=== PATIENT | male | born 1945 | race Caucasian/White ===

== ENCOUNTER → 2017-06-21 | Outpatient (CLI) | payer BC ==
[~2017-06-21] MED LIST: AMLO-110 PO; FLUT0.15 NAE; LISI-786 PO; METF1000 PO; OMEP40CA36 PO; PRAV20TA PO
== END | disposition home or self-care (01) ==
LOC: C.LAB 08:16
PROVIDERS: ATTEND Urology
DX: N39.0 Urinary tract infection, site not specified (principal); R35.0 Frequency of micturition; R39.15 Urgency of urination

== ENCOUNTER → 2017-08-16 | Outpatient (CLI) | payer BC ==
--- NOTE | 2017-08-16 09:09 | DIAGNOSTIC IMAGING REPORT ---
L KNEE 4 OR MORE CLINICAL HISTORY: 72 years-old Male presenting with OSTEOARTHRITIS OF LEFT KNEE. TECHNIQUE: Bilateral frontal views of the knees in standing position as well as lateral, tunnel, and sunrise views of the left knee were obtained. COMPARISON: 09/20/2014. FINDINGS: The right knee demonstrates lateral compartment degenerative change including osteophytosis. No significant joint space loss. The left knee demonstrates both medial and lateral compartment osteophytosis as well as patellofemoral compartment osteophytosis. Trace medial joint space loss of the left knee may be present in comparison to the right. Prominent ossicles/heterotopic ossification along the quadriceps tendon insertion site. Additional ossicles/heterotopic ossification noted elsewhere, possibly indicating loose bodies. One of of the calcifications likely represents a fabella. No acute fracture. Lateral subluxation of the patella with severe lateral patellar joint space loss with [id number] morphology. IMPRESSION: 1. Lateral compartment degenerative change of the right knee. 2. Tricompartmental degenerative change of the left knee with trace medial joint space loss. Degenerative changes most severe in the patellofemoral compartment, where there is full-thickness cartilage loss in the lateral facet and mild lateral subluxation of the patella. 3. No acute osseous injury. Electronically signed by: Hieu Monteiro M.D. 08/16/2017 9:07 AM Dictated Date/Time: 08/16/2017 9:04 AM
== END | disposition home or self-care (01) ==
LOC: C.RDSM 08:45
PROVIDERS: ATTEND Physician Assistant
DX: M17.12 Unilateral primary osteoarthritis, left knee (principal); M89.8X6 Other specified disorders of bone, lower leg

== ENCOUNTER → 2017-10-01 | Outpatient (CLI) | payer BC ==
--- NOTE | 2017-10-01 12:59 | DIAGNOSTIC IMAGING REPORT ---
(RENAL)RETROPERITON COMP HISTORY: 72 years-old Male CHRONIC KIDNEY DISEASE COMPARISON: Ultrasound of the aorta 04/06/2015 TECHNIQUE: Multiple real-time sonographic images of the kidneys and urinary bladder were obtained assessing grayscale appearance and color flow FINDINGS: Right kidney measures 11.6 cm in length. There is mild cortical thinning with increased parenchymal echogenicity. 7 mm nonobstructing calculus of the interpolar right kidney. No hydronephrosis. Hypoechoic lesion of the lower pole left kidney measures up to 1.3 cm without internal vascularity which may reflect a complex cyst. The left kidney measures 12.6 cm in length without hydronephrosis or definite renal calculi. Mildly increased echogenicity of the left kidney parenchyma also noted. Incidental note is made of splenomegaly, 14.8 cm. The urinary bladder is unremarkable with ureteral jets not seen. IMPRESSION: 1. Mildly increased echogenicity of the bilateral kidneys suggests chronic medical renal disease. 2. 7 mm nonobstructing calculus of the interpolar right kidney. 3. 1.3 cm hypoechoic avascular lesion of the lower pole right kidney suggests mildly complex cyst. 4. No hydronephrosis. The above report was generated using voice recognition software. It may contain grammatical, syntax or spelling errors. Electronically signed by: Fabiano Mazariegos M.D. 10/01/2017 12:57 PM Dictated Date/Time: 10/01/2017 12:54 PM
== END | disposition home or self-care (01) ==
LOC: C.ULTR 12:10
PROVIDERS: ATTEND Family Medicine
DX: N18.9 Chronic kidney disease, unspecified (principal); N20.0 Calculus of kidney; N28.9 Disorder of kidney and ureter, unspecified

== ENCOUNTER → 2017-12-06 | Outpatient (CLI) | payer BC | END | disposition home or self-care (01) | LOC: C.LAB 11:43 | PROVIDERS: ATTEND Urology | DX: R35.1 Nocturia (principal); N52.9 Male erectile dysfunction, unspecified; N39.0 Urinary tract infection, site not specified; Z12.5 Encounter for screening for malignant neoplasm of prostate ==

== ENCOUNTER 2021-06-30 18:56 | Observation (INO) ==
[2021-06-30] MEDS ORDERED: SODIUM CHLORIDE 0.9% 1000ML 1,000 ML IV STA (19:45)
--- NOTE | 2021-06-30 19:59 | Emergency Department Note ---
Impression & Plan Syncope and collapse, COVID-19 ED Provider Note INFORMANT: Patient ED PROVIDER(S): Dougie Elizalde MD CHIEF COMPLAINT: Syncope PLAN: Disposition: Admitted Condition: Good Outpatient prescription management: none Referral: None MEDICAL DECISION MAKING: Patient was presented to the emergency department because of syncopal episodes. He has had a Covid contact. He does have some symptoms. Chest x-ray does not show any significant findings. Vital signs are stable. He was hydrated. The patient underwent a work-up. His CBC and chemistry panel revealed some mild dehydration. Troponin was negative. The patient underwent CT imaging due to the Covid diagnosis and multiple syncopal episodes. No thromboembolic disease was noted. A viral pneumonitis type pattern was present. Patient was given dose of IV Decadron. Further management in the hospital will be necessary. I gave my usual and customary discussion regarding this issue. Consultation was made with Dr. Chris Pace of the [facility] service. Patient was evaluated in the ER for further management. Triage Nursing notes reviewed and agree them. Vital Signs: reviewed and remarkable for no significant abnormalities Differential diagnosis: COVID-19, vasovagal event, dehydration, infection, hypoglycemia, electrolyte abnormalities, cardiac sources, intracerebral event, pulmonary embolism, seizure, toxicologic, neurologic, as well as other pathologies. Diagnostics interpreted by me: ECG: Twelve-lead ECG reveals normal sinus rhythm at 68 bpm. Inferior Q waves. No ST elevation or depression. No PVCs or PACs. Cardiac Monitoring: Cardiac monitoring ordered by me: The patient was placed on continuous cardiac monitoring and observed. It revealed a normal sinus rhythm at 66 beats per minute without ectopy or evidence of dysrhythmia. Imaging studies: Chest x-ray and CT scan as above. I refer you to the EMR for further details. HPI: The patient is a 76 year old male who presents to the Emergency Room with complaints of syncope. This started this evening and is currently resolved. EMS noted the patient had 3 syncopal episodes. The patient remembers 1. The patient was initially hypotensive. He was given a 250 mL saline bolus. The patient has had a cough and congestion for about 4 days or so. His daughter has had cold symptoms and tested positive for Covid today. The patient is va ccinated. Patient denies any pain. Pt denies headache, diaphoresis, visual changes, neck pain, chest pain, shortness of breath, nausea, vomiting, abdominal pain, back pain, melena, hematochezia, urinary symptoms, numbness, weakness, lymphadenopathy, rash, or other complaints. ROS: See above HPI for pertinent positives & negatives. A total of 10 systems reviewed and were otherwise negative. PAST MEDICAL HISTORY:See Below , CKD, diabetes, hypertension PAST SURGICAL HISTORY:See Below, FAMILY HISTORY:See Below SOCIAL HISTORY:See Below, retired HOME MEDICATIONS:See Below ALLERGIES:See Below VITALS:See Below PHYSICAL EXAMINATION: GENERAL: Awake, tired-appearing, in no distress HENT: Normocephalic, atraumatic. Oropharynx unremarkable. EYES: Normal conjunctiva. Sclera non-icteric. NECK: Inspection normal. Non-tender. Supple. No nuchal rigidity. FROM. No masses. RESPIRATORY: Clear to auscultation. No wheezes. No rales. Normal respiratory e ffort. CARDIAC: Normal rate. Normal rhythm. No murmurs. No rubs. Extremities warm and well perfused. Pulses equal. No JVD. GI: Soft, non-distended. No tenderness to palpation. No rebound or guarding. No masses. RECTAL: Deferred. MUSCULOSKELETAL: Atraumatic. Chest examination reveals no tenderness. The back is symmetrical on inspection without obvious abnormality. There is no CVA tenderness to palpation. No joint edema. LOWER EXTREMITIES: Calves are equal size bilaterally and non-tender. No edema. No discoloration. NEURO: Normal sensorium. No sensory or motor deficits noted. SKIN: No rash or jaundice noted. Dougie Elizalde MD Past Med/Surg History Medical History (Updated 07/01/21 @ 14:40 by Dougie Elizalde MD) Chronic kidney disease, stage III (moderate) Seen by nephro 03/04/20- baseline creat 1.2-1.4. Due to stable kidney function- recommended follow up with PCP. F/u with nephro PRN Degenerative disc disease Chronic low back pain Diabetes mellitus, type 2 IDDM Diastolic heart failure Follows with Dr. Brooks - Joe with Type II diastolic dysfunction Hearing deficit BL CALDERÓN Hypercholesterolemia Hypertension OAB (overactive bladder) Osteoarthritis Peripheral neuropathy LOWER LEGS/FEET Surgical History History of appendectomy History of colonoscopy History of tonsillectomy History of wisdom tooth extraction Family History Father Family history of diabetes mellitus Diabetes Hypertension Heart disease Mother Family history of diabetes mellitus Diabetes Heart disease Hypertension Brother Family history of diabetes mellitus Sister Family history of diabetes mellitus Other No family history of adverse response to anesthesia Social History (Updated 04/13/20 @ 09:25 by Sharon Blackwell RN) Smoking Status: Former smoker Second Hand Exposure: No; Do You Dip or Chew Tobacco: No; Hx Alcohol Use: No Hx Substance Use: No Preferred Language: [place]ese Communication Ability: Effective Curriculum And Assessment Director Required: No Beliefs That Will Affect Care: None marital status: Current Living Situation: Spouse current occupational status: retired current occupation: Retired - [employer] Feels Safe at Home: Yes Safety Concerns: Feels Safe At This Time Assistive Devices: Oxygen - Continuous Allergies Allergies Allergy/AdvReac Type Severity Reaction Status Date / Time No Known Allergies Allergy NONE Verified 06/30/21 20:38 Home Meds Home Medications Medication Instructions Recorded Confirmed aspirin 81 mg tablet,delayed 81 mg PO DAILY 12/01/19 06/30/21 release coenzyme Q10 100 mg capsule 100 mg PO QAM 12/01/19 06/30/21 (CoQ-10) fluticasone propionate 50 1 spray INTRANASAL DAILY PRN 12/01/19 06/30/21 mcg/actuation nasal spray,suspension (Flonase Allergy Relief) insulin glargine 100 unit/mL 16 unit SUBCUT HS 12/01/19 06/30/21 subcutaneous solution (Lantus U-100 Insulin) cholecalciferol (vitamin D3) 50 1,000 units PO BID cap 02/22/20 06/30/21 mcg (2,000 unit) capsule insulin lispro 100 unit/mL 1 sliding scale dose SQ TIDM ml 03/14/20 06/30/21 subcutaneous solution (Humalog U-100 Insulin) acetaminophen 500 mg capsule 1,000 mg PO Q6H PRN 04/27/20 06/30/21 losartan 100 mg tablet 50 mg PO QAM 04/27/20 06/30/21 diclofenac sodium 1 % topical gel 1 ea TOPICAL UD 06/30/21 06/30/21 furosemide 20 mg tablet 20 mg PO DAILY 06/30/21 06/30/21 gabapentin 600 mg tablet 600 mg PO TID 06/30/21 06/30/21 Previous Rx's Medication Instructions Recorded fesoterodine 4 mg tablet,extended 4 mg PO BID #60 tab 03/15/21 release 24 hr Results & Data (ED) Vital Signs Vital Signs - 24 hr 06/30/21 19:06 06/30/21 19:11 06/30/21 19:17 Temperature 37.1 C Temperature Source Oral Pulse Rate 68 69 Pulse Rate [Apical] Pulse Rate from SpO2 Sensor 69 Pulse Rhythm Pulse Rhythm [Apical] Pulse Strength [Apical] Respiratory Rate 18 21 Respiratory Effort / Characteristics Respiratory Depth Normal Respiratory Pattern Blood Pressure 156/89 H Blood Pressure [Right Arm] Blood Pressure Mean 111 Blood Pressure Mean [Right Arm] Blood Pressure Position [Right Arm] Pulse Oximetry 97 97 95 Oxygen Delivery Method Room Air Room Air Sepsis Recent Fever Within 48 Hours No Sepsis New/Unexplained Change in Mental Status N/A Sepsis Action Taken by Nursing No Action Required 06/30/21 19:18 06/30/21 19:30 06/30/21 19:45 Temperature Temperature Source Pulse Rate 69 67 Pulse Rate [Apical] 71 Pulse Rate from SpO2 Sensor 69 67 Pulse Rhythm Pulse Rhythm [Apical] Regular Pulse Strength [Apical] Normal Respiratory Rate 16 22 23 Respiratory Effort / Characteristics Non-Labored Respiratory Depth Normal Respiratory Pattern Regular Blood Pressure 137/78 Blood Pressure [Right Arm] 156/89 H Blood Pressure Mean 97 Blood Pressure Mean [Right Arm] 111 Blood Pressure Position [Right Arm] Lying Pulse Oximetry 94 92 95 Oxygen Delivery Method Room Air Sepsis Recent Fever Within 48 Hours Sepsis New/Unexplained Change in Mental Status Sepsis Action Taken by Nursing 06/30/21 19:48 06/30/21 20:00 06/30/21 20:15 Temperature Temperature Source Pulse Rate 68 67 74 Pulse Rate [Apical] 66 Pulse Rate from SpO2 Sensor 67 73 Pulse Rhythm Regular Pulse Rhythm [Apical] Regular Pulse Strength [Apical] Normal Respiratory Rate 16 22 20 Respiratory Effort / Characteristics Non-Labored Respiratory Depth Normal Respiratory Pattern Regular Blood Pressure 147/81 H Blood Pressure [Right Arm] 137/78 Blood Pressure Mean 103 Blood Pressure Mean [Right Arm] 97 Blood Pressure Position [Right Arm] Lying Pulse Oximetry 94 99 94 Oxygen Delivery Method Room Air Sepsis Recent Fever Within 48 Hours Sepsis New/Unexplained Change in Mental Status Sepsis Action Taken by Nursing 06/30/21 20:30 06/30/21 20:45 06/30/21 21:00 Temperature Temperature Source Pulse Rate 68 70 71 Pulse Rate [Apical] Pulse Rate from SpO2 Sensor 69 70 102 H Pulse Rhythm Pulse Rhythm [Apical] Pulse Strength [Apical] Respiratory Rate 21 20 20 Respiratory Effort / Characteristics Respiratory Depth Respiratory Pattern Blood Pressure 155/87 H 166/89 H Blood Pressure [Right Arm] Blood Pressure Mean 109 114 Blood Pressure Mean [Right Arm] Blood Pressure Position [Right Arm] Pulse Oximetry 93 91 81 L Oxygen Delivery Method Sepsis Recent Fever Within 48 Hours Sepsis New/Unexplained Change in Mental Status Sepsis Action Taken by Nursing 06/30/21 21:18 Temperature 36.8 C Temperature Source Oral Pulse Rate Pulse Rate [Apical] 70 Pulse Rate from SpO2 Sensor Pulse Rhythm Pulse Rhythm [Apical] Regular Pulse Strength [Apical] Normal Respiratory Rate 18 Respiratory Effort / Characteristics Non-Labored Respiratory Depth Normal Respiratory Pattern Regular Blood Pressure Blood Pressure [Right Arm] 157/91 H Blood Pressure Mean Blood Pressure Mean [Right Arm] 113 Blood Pressure Position [Right Arm] Lying Pulse Oximetry 96 Oxygen Delivery Method Room Air Sepsis Recent Fever Within 48 Hours Sepsis New/Unexplained Change in Mental Status Sepsis Action Taken by Nursing Laboratory Data Result diagrams: 07/01/21 06:56 07/01/21 06:56 Lab Results 06/30/21 06/30/21 06/30/21 Range/Units 19:10 19:10 19:10 WBC 5.57 (4.8-10.8) K/uL RBC 4.54 L (4.7-6.1) M/uL Hgb 14.4 (14.0-18.0) g/dL Hct 43.2 (42-52) % MCV 95.2 (80-100) fL MCH 31.7 (25-34) pg MCHC 33.3 (32-36) g/dL RDW Std Deviation 45.7 (36.4-46.3) fL RDW Coeff of Roly 13.2 (11.5-14.5) % Plt Count 174 (130-400) K/uL MPV 11.8 H (7.4-10.4) fL Immature Gran % (Auto) 0.2 % Neut % (Auto) 63.8 % Lymph % (Auto) 19.9 % Catron % (Auto) 14.5 % Eos % (Auto) 1.4 % Baso % (Auto) 0.2 % Neut # (Auto) 3.55 (1.4-6.5) K/uL Lymph # (Auto) 1.11 L (1.2-3.4) K/uL Catron # (Auto) 0.81 H (0.11-0.59) K/uL Eos # (Auto) 0.08 (0-0.5) K/uL Baso # (Auto) 0.01 (0-0.2) K/uL Immature Gran # (Auto) 0.01 (0.00-0.02) K/uL PT 10.4 (9.0-12.0) Seconds INR 1.0 (0.9-1.1) APTT 28.8 (21.0-31.0) Seconds PTT Ratio 1.1 Sodium 137 (136-145) mmol/L Potassium 4.2 (3.5-5.1) mmol/L Chloride 104 (98-107) mmol/L Carbon Dioxide 28 (21-32) mmol/L Anion Gap 5.0 (3-11) BUN 26 H (7-18) mg/dl Creatinine 1.66 H (0.6-1.4) mg/dl Est Cr Clr Drug Dosing 45.1 ml/min Est GFR ( Amer) 46.0 ml/min Est GFR (Non-Af Amer) 39.7 ml/min BUN/Creatinine Ratio 15.8 (10-20) Glucose 201 H (70-99) mg/dl Calcium 8.7 (8.5-10.1) mg/dl Total Bilirubin 0.5 (0.2-1) mg/dl AST 13 L (15-37) U/L ALT 19 (12-78) U/L Alkaline Phosphatase 79 (45-117) U/L Troponin I < 0.015 (0-0.045) ng/ml Total Protein 7.1 (6.4-8.2) gm/dl Albumin 3.0 L (3.4-5.0) gm/dl Globulin 4.1 H (2.5-4.0) gm/dl Albumin/Globulin Ratio 0.7 L (0.9-2) Lipase 80 (73-393) U/L COVID-19 Eval Order SARS-CoV-2 (PCR) (Negative) 06/30/21 06/30/21 Range/Units 19:48 19:48 WBC (4.8-10.8) K/uL RBC (4.7-6.1) M/uL Hgb (14.0-18.0) g/dL Hct (42-52) % MCV (80-100) fL MCH (25-34) pg MCHC (32-36) g/dL RDW Std Deviation (36.4-46.3) fL RDW Coeff of Roly (11.5-14.5) % Plt Count (130-400) K/uL MPV (7.4-10.4) fL Immature Gran % (Auto) % Neut % (Auto) % Lymph % (Auto) % Catron % (Auto) % Eos % (Auto) % Baso % (Auto) % Neut # (Auto) (1.4-6.5) K/uL Lymph # (Auto) (1.2-3.4) K/uL Catron # (Auto) (0.11-0.59) K/uL Eos # (Auto) (0-0.5) K/uL Baso # (Auto) (0-0.2) K/uL Immature Gran # (Auto) (0.00-0.02) K/uL PT (9.0-12.0) Seconds INR (0.9-1.1) APTT (21.0-31.0) Seconds PTT Ratio Sodium (136-145) mmol/L Potassium (3.5-5.1) mmol/L Chloride (98-107) mmol/L Carbon Dioxide (21-32) mmol/L Anion Gap (3-11) BUN (7-18) mg/dl Creatinine (0.6-1.4) mg/dl Est Cr Clr Drug Dosing ml/min Est GFR ( Amer) ml/min Est GFR (Non-Af Amer) ml/min BUN/Creatinine Ratio (10-20) Glucose (70-99) mg/dl Calcium (8.5-10.1) mg/dl Total Bilirubin (0.2-1) mg/dl AST (15-37) U/L ALT (12-78) U/L Alkaline Phosphatase (45-117) U/L Troponin I (0-0.045) ng/ml Total Protein (6.4-8.2) gm/dl Albumin (3.4-5.0) gm/dl Globulin (2.5-4.0) gm/dl Albumin/Globulin Ratio (0.9-2) Lipase (73-393) U/L COVID-19 Eval Order Covid19 at [facility] SARS-CoV-2 (PCR) POSITIVE A* (Negative) Administered Medications Aspirin (Aspirin 81 Mg Ectab) 81 mg PO DAILY BRENDAN Stop: 07/31/21 08:59 Last Admin: 07/01/21 09:25 Dose: 81 mg Documented by: [id number] Enoxaparin Sodium (Enoxaparin Inj 40 Mg/0.4 Ml Syr) 40 mg SQ Q12H BRENDAN Stop: 07/31/21 05:59 Last Admin: 07/01/21 04:05 Dose: 40 mg Documented by: [id number] Furosemide (Furosemide 20 Mg Tab) 20 mg PO DAILY BRENDAN Stop: 07/31/21 08:59 Last Admin: 07/01/21 09:25 Dose: 20 mg Documented by: [id number] Gabapentin (Gabapentin 600 Mg Tab) 600 mg PO TID BRENDAN Stop: 07/31/21 08:59 Last Admin: 07/01/21 13:06 Dose: 600 mg Documented by: [id number] Admin: 07/01/21 09:25 Dose: 600 mg Documented by: [id number] Guaifenesin (Guaifenesin 600 Mg Tabcr) 1,200 mg PO Q12 BRENDAN Stop: 07/31/21 08:59 Last Admin: 07/01/21 09:26 Dose: 1,200 mg Documented by: [id number] Dexamethasone 6 mg/ Syringe 1.5 mls @ 1 mls/min IV Q24H BRENDAN Stop: 07/31/21 08:59 Last Admin: 07/01/21 09:48 Dose: 1 mls/min Documented by: [id number] Azithromycin 500 mg/ Dextrose 255 mls @ 125 mls/hr IV Q24H BRENDAN Stop: 07/08/21 03:59 Last Infusion: 07/01/21 06:13 Dose: 0 mls/hr Documented by: [id number] Admin: 07/01/21 04:05 Dose: 125 mls/hr Documented by: [id number] Insulin Aspart (Insulin Aspart 100 Units/Ml 3 Ml Pen) 0 units SC ACHS BRENDAN Stop: 07/31/21 07:29 Last Admin: 07/01/21 13:05 Dose: 8 units Documented by: [id number] Cosigned by: [id number] Admin: 07/01/21 09:22 Dose: 9 units Documented by: [id number] Cosigned by: [id number] Admin: 07/01/21 04:05 Dose: 4 units Documented by: [id number] Cosigned by: [id number] Sodium Chloride (Sodium Chloride 0.9% 10ml Flush) 30 ml IV Q24H BRENDAN Stop: 07/05/21 00:56 Last Admin: 07/01/21 02:48 Dose: 30 ml Documented by: [id number] Tolterodine Tartrate (Tolterodine Tartrate La 4 Mg Capcr) 4 mg PO DAILY [facility] Stop: 07/31/21 08:59 Last Admin: 07/01/21 09:26 Dose: 4 mg Documented by: [id number] Vitamin D (Cholecalciferol 1,000 Units 25 Mcg Tab) 5,000 [facility] [place]: 07/31/21 08:59 Last Admin: 07/01/21 09:25 Dose: 5,000 units Documented by: [id number] Zinc Sulfate (Zinc Sulfate 220 Mg Capsule) 220 mg PO QAM [facility] Stop: 07/31/21 08:59 Last Admin: 07/01/21 09:26 Dose: 220 mg Documented by: [id number] Discontinued Medications Albuterol (Albut/Ipratrop 3mg/0.5mg Neb 3 Ml Vial) 3 ml NEB QIDR [facility] Stop: 07/31/21 06:59 Last Admin: 07/01/21 11:25 Dose: 3 ml Documented by: [id number] Admin: 07/01/21 05:40 Dose: 3 ml Documented by: [id number] Dexamethasone Sodium Phosphate (DexamethasonePf 10 Mg/Ml Vial) 6 mg IV NOW ONE Stop: 06/30/21 21:45 Last Admin: 06/30/21 21:58 Dose: 6 mg Documented by: [id number] Sodium Chloride (Nss 1000ml) 1,000 mls @ 125 mls/hr IV .Q8H STA Stop: 07/01/21 03:44 Last Infusion: 07/01/21 02:16 Dose: 0 mls/hr Documented by: [id number] Admin: 06/30/21 19:53 Dose: 125 mls/hr Documented by: [id number] Sodium Chloride (Nss 1000ml) 500 mls @ 999 mls/hr IV .Q31M ONE Stop: 06/30/21 23:29 Last Infusion: 07/01/21 02:52 Dose: 0 mls/hr Documented by: [id number] Admin: 07/01/21 02:15 Dose: 999 mls/hr Documented by: [id number] Remdesivir 200 mg/ Sodium (Chloride) 250 mls @ 125 mls/hr IV ONE STA; Protocol Stop: 07/01/21 01:17 Last Infusion: 07/01/21 02:52 Dose: 0 mls/hr Documented by: [id number] Admin: 07/01/21 00:23 Dose: 125 mls/hr Documented by: [id number] Sodium Chloride (Nss 1000ml) 1,000 mls @ 80 mls/hr IV .[id number] BRENDAN Stop: 07/01/21 13:24 Last Infusion: 07/01/21 09:51 Dose: 0 mls/hr Documented by: [id number] Infusion: 07/01/21 06:04 Dose: 80 mls/hr Documented by: [id number] Infusion: 07/01/21 04:13 Dose: 0 mls/hr Documented by: [id number] Admin: 07/01/21 02:49 Dose: 80 mls/hr Documented by: [id number] Ioversol (Optiray 320 125ml) 102 ml IV ONCE ONE Stop: 06/30/21 22:22 Last Admin: 06/30/21 22:25 Dose: 102 ml Documented by: [id number] Imaging Data Radiologist's Impression: Chest CTA 06/30/21 21:44 CHEST CTA for PULMONARY ARTERIES CT DOSE: 562.61 mGycm HISTORY: Syncope, +Covid TECHNIQUE: Multiaxial CT images of the chest were performed following the intravenous administration of contrast to evaluate the pulmonary arteries. Maximal intensity projection images were also obtained. A dose lowering technique was utilized adhering to the principles of ALARA. COMPARISON STUDY: None. FINDINGS: Limited views of the upper abdomen demonstrate a normal liver and spleen. Prior cholecystectomy. There is a small hiatus hernia. No pleural or p ericardial effusions. The heart is mildly enlarged. Normal esophagus. No mediastinal lymphadenopathy. No fractures within the visualized osseous structures. No pneumothorax. The central airways are patent. There is respiratory motion artifact resulting in suboptimal evaluation. Mild interlobular septal thickening at the lung bases. There are faint patchy groundglass airspace opacities within the right middle lobe. Bibasilar linear densities consistent with subsegmental atelectasis. There are few borderline enlarged right hilar and right bronchial lymph nodes. These may be reactive. Normal caliber thoracic aorta with no evidence for dissection. No filling defects within the pulmonary arteries to suggest a pulmonary embolus. IMPRESSION: 1. No evidence for pulmonary embolus. 2. Patchy groundglass airspace opacities within the right middle lobe consistent with an atypical infectious process such as a viral pneumonia. 3. A few prominent right hilar and bronchial lymph nodes which may be reactive. ACT 112: Negative or not required by law. Electronically signed by: Raul Ann M.D. 07/01/2021 8:52 AM Discharge Plan Visit Data Chief Complaint: Cardiac Assessment Stated Complaint: Syncope covid exposure ED Provider: Dougie Elizalde Discharge Problem: Syncope and collapse, COVID-19 Patient Disposition: Admitted As Inpatient Discharge Instructions Interventions: ED Discharge Assessment Last Done: 07/01/21 00:43
[2021-06-30 20:20] LABS: Basophils # (auto) 0.01 K/uL (0-0.2); Basophils % (auto) 0.2 %; Eosinophils # (auto) 0.08 K/uL (0-0.5); Eosinophils % (auto) 1.4 %; Hematocrit (blood only) 43.2 % (42-52); Hemoglobin 14.4 g/dL (14.0-18.0); Immature Granulocytes # (auto) 0.01 K/uL (0.00-0.02); Immature Granulocytes % (auto) 0.2 %; Lymphocytes # (auto) 1.11 K/uL (1.2-3.4); Lymphocytes % (auto) 19.9 %; Mean Corpuscular Hemoglobin 31.7 pg (25-34); Mean Corpuscular Hgb Conc 33.3 g/dL (32-36); Mean Corpuscular Volume 95.2 fL (80-100); Mean Platelet Volume 11.8 fL (7.4-10.4); Monocytes # (auto) 0.81 K/uL (0.11-0.59); Monocytes % (auto) 14.5 %; Neutrophils # (auto) 3.55 K/uL (1.4-6.5); Neutrophils % (auto) 63.8 %; Platelet Count 174 K/uL (130-400); RDW Coefficient of Variation 13.2 % (11.5-14.5); RDW Standard Deviation 45.7 fL (36.4-46.3); Red Blood Count 4.54 M/uL (4.7-6.1); White Blood Count 5.57 K/uL (4.8-10.8)
--- NOTE | 2021-06-30 20:23 | XRay Report ---
XR chest 1V portable CLINICAL HISTORY: Syncope. COMPARISON STUDY: Chest radiograph December 22, 2020. FINDINGS: No pneumothorax or pleural effusion is present. Cardiomegaly is noted. There may be pulmona ry vascular congestion. No lobar consolidation. IMPRESSION: Cardiomegaly with pulmonary vascular congestion. ACT 112: Negative or not required by law. Electronically signed by: Ventura Slade M.D. 06/30/2021 8:21 PM
[2021-06-30 20:33] LABS: Partial Thromboplastin Ratio 1.1; Partial Thromboplastin Time 28.8 Seconds (21.0-31.0); Prothrombin Time 10.4 Seconds (9.0-12.0)
[2021-06-30 20:57] LABS: Alanine Aminotransferase 19 U/L (12-78); Aspartate Aminotransferase 13 U/L (15-37); BUN Creatinine Ratio 15.8 (10-20); Blood Urea Nitrogen 26 mg/dl (7-18); Calcium 8.7 mg/dl (8.5-10.1); Carbon Dioxide 28 mmol/L (21-32); Chloride 104 mmol/L (98-107); Creatinine Clr Calc Pharmacy 45.1 ml/min; Est GFR (Non-African American) 39.7 ml/min; Glucose 201 mg/dl (70-99); Lipase 80 U/L (73-393); Potassium 4.2 mmol/L (3.5-5.1); Sodium 137 mmol/L (136-145)
[2021-06-30 21:01] LABS: Albumin Globulin Ratio 0.7 (0.9-2); Alkaline Phosphatase 79 U/L (45-117); Bilirubin,Total 0.5 mg/dl (0.2-1); Globulin 4.1 gm/dl (2.5-4.0); Total Protein 7.1 gm/dl (6.4-8.2); Troponin I < 0.015 ng/ml (0-0.045)
[2021-06-30] MEDS ORDERED: dexAMETHasone**PF** 10 MG/ML VIAL IV ONE (21:44)
[2021-06-30] MEDS ORDERED: OPTIRAY 320 125ml IV ONE (22:21)
[2021-06-30] MEDS ORDERED: SODIUM CHLORIDE 0.9% 1000ML 500 ML IV ONE (22:59)
[2021-06-30] MEDS ORDERED: REMDESIVIR 200 MG in SODIUM CHLORIDE 0.9% 210 ML IV STA (23:18)
--- NOTE | 2021-06-30 23:19 | History & Physical Report ---
Date of Service June 30, 2021 Assessment & Plan (1) Pneumonia due to COVID-19 virus: Plan: Pneumonia due to COVID-19 virus with hypoxia- Dexamethasone 6 mg IV every morning Remdesivir IV per protocol Azithromycin 500 mg IV daily Duonebs every 4 hours while awake and every 2 hours when necessary. Nasal cannula oxygen, titrate to keep pulse ox around 94% Guaifenesin extended release 1200 mg p.o. twice daily Vitamin D 5000 international units p.o. daily Zinc sulfate turn 20 mg p.o. daily (2) Hypoxia: Plan: See above (3) Diabetes mellitus: Plan: Glucose 201 upon admission Continue Lantus 16 units subcu at bedtime Place on Accu-Cheks before meals and at bedtime with NovoLog coverage per scale Check hemoglobin A1c (4) Acute kidney injury superimposed on chronic kidney disease: Plan: RAMIN on CKD stage III- Creatinine 1.66 upon admission, with base 1.38 Received NSS 1500 mL in the ED NSS at 100 mils per hour x1 L Repeat laboratories in a.m. (5) Hypertension: Plan: Hold losartan, and furosemide Hydralazine 10 mg IV every 4 hours as needed systolic blood pressure greater than 160 (6) Chronic kidney disease, stage III (moderate): Plan: See above (7) Peripheral neuropathy: Plan: Continue gabapentin History of Present Illness Chief Complaint: The patient presents to the emergency department with complaint of 4 to 5 days of chest congestion, shortness of breath, and dyspnea on exertion, after exposure to his daughter who tested positive for COVID-19 Primary Care Provider: Laz Nunez The patient is a 76-year-old male with a past medical history including hypercholesterolemia, BPH with LUTS, internal hemorrhoids, diabetes mellitus, diverticulosis, GERD, vitamin D deficiency, hypertension and CKD stage III. Patient reports symptoms as noted above, in addition, he reports an episode where he became very fatigued, lost his balance, but did not lose consciousness. He denies any injuries associated with this fall Allergies Allergy/AdvReac Type Severity Reaction Status Date / Time No Known Allergies Allergy NONE Verified 06/30/21 20:38 Home Medications Medication Instructions Recorded Confirmed Type aspirin 81 mg tablet,delayed 81 mg PO DAILY 12/01/19 06/30/21 History release coenzyme Q10 100 mg capsule 100 mg PO QAM 12/01/19 06/30/21 History (CoQ-10) fluticasone propionate 50 1 spray INTRANASAL DAILY PRN 12/01/19 06/30/21 History mcg/actuation nasal spray,suspension (Flonase Allergy Relief) insulin glargine 100 unit/mL 16 unit SUBCUT HS 12/01/19 06/30/21 History subcutaneous solution (Lantus U-100 Insulin) cholecalciferol (vitamin D3) 50 1,000 units PO BID cap 02/22/20 06/30/21 History mcg (2,000 unit) capsule insulin lispro 100 unit/mL 1 sliding scale dose SQ TIDM ml 03/14/20 06/30/21 Hi story subcutaneous solution (Humalog U-100 Insulin) acetaminophen 500 mg capsule 1,000 mg PO Q6H PRN 04/27/20 06/30/21 History losartan 100 mg tablet 50 mg PO QAM 04/27/20 06/30/21 History fesoterodine 4 mg tablet,extended 4 mg PO BID #60 tab 03/15/21 06/30/21 Rx release 24 hr diclofenac sodium 1 % topical gel 1 ea TOPICAL UD 06/30/21 06/30/21 History furosemide 20 mg tablet 20 mg PO DAILY 06/30/21 06/30/21 History gabapentin 600 mg tablet 600 mg PO TID 06/30/21 06/30/21 History Past Med/Surg History Medical History (Updated 07/01/21 @ 03:03 by Chris Pace MD) Chronic kidney disease, stage III (moderate) Seen by nephro 03/04/20- baseline creat 1.2-1.4. Due to stable kidney function- recommended follow up with PCP. F/u with nephro PRN Degenerative disc disease Chronic low back pain Diabetes mellitus, type 2 IDDM Diastolic heart failure Follows with Dr. Brooks - Joe with Type II diastolic dysfunction Hearing deficit BL CALDERÓN Hypercholesterolemia Hypertension OAB (overactive bladder) Osteoarthritis Peripheral neuropathy LOWER LEGS/FEET Surgical History History of appendectomy History of colonoscopy History of tonsillectomy History of wisdom tooth extraction Family History Father Family history of diabetes mellitus Diabetes Hypertension Heart disease Mother Family history of diabetes mellitus Diabetes Heart disease Hypertension Brother Family history of diabetes mellitus Sister Family history of diabetes mellitus Other No family history of adverse response to anesthesia Social History (Updated 04/13/20 @ 09:25 by Sharon Blackwell RN) Smoking Status: Former smoker Second Hand Exposure: Yes (FAMILY SMOKED); Hx Alcohol Use: No Hx Substance Use: No Preferred Language: Nepali Communication Ability: Effective Staffing Analyst Required: No Beliefs That Will Affect Care: None marital status: Current Living Situation: Spouse current occupational status: retired current occupation: Retired - [employer] Feels Safe at Home: Yes Assistive Devices: Glasses and Hearing Aid - Bilateral Review of Systems Review of Systems: The patient denies chest pain, palpitations, cough, lower extremity swelling, sore throat, fevers, chills, sweats, nausea, vomiting, diarrhea , constipation, abdominal pain, pelvic pain, blood in urine or stool, dysuria, urinary frequency or urgency, memory loss, loss of consciousness, rash, abnormal bruising or bleeding, focal weakness, numbness or tingling in arms or legs, generalized arthralgias or myalgias, back or neck pain, or night sweats. The review of systems is otherwise negative other than for that already noted above, and at least 10 systems have been reviewed. Physical Exam Physical Exam: The patient is awake, alert and oriented 3, well developed and well nourished, normocephalic and atraumatic, lying in bed and in no acute distress. HEENT--PERRL, EOMI, mucous membranes and oropharynx normal. Neck--supple. No JVD. No bruits. Thyroid normal, trachea midline, no adenopathy. Heart--normal S1 and S2. No murmurs, rubs or gallops. Lungs--few coarse breath sounds bilaterally. No respiratory distress, no accessory muscle use. Abdomen--normal bowel sounds and soft. Nontender. Nondistended, no hernias or masses, no organomegaly. Extremities--no cyanosis or clubbing. No edema. Dermatologic--normal skin turgor, normal color, no abnormal lymph nodes, no rash. Neurologic--cranial nerves II through XII grossly intact. Rheumatologic--normal range of motion. Psychiatric--normal affect. Results & Data Results & Data ([facility]) Vital Signs (Past 12 Hours) Vital Signs Temp Pulse Pulse Resp BP BP Pulse Ox 06/30/21 21:18 98.2 F 70 18 157/91 H 96 06/30/21 21:00 71 20 166/89 H 81 L 06/30/21 20:45 70 20 91 06/30/21 20:30 68 21 155/87 H 93 06/30/21 20:15 74 20 94 06/30/21 20:00 67 22 147/81 H 99 06/30/21 19:48 68 66 16 137/78 94 06/30/21 19:45 67 23 95 06/30/21 19:30 69 22 137/78 92 06/30/21 19:18 71 16 156/89 H 94 06/30/21 19:17 69 21 95 06/30/21 19:11 97 06/30/21 19:06 98.8 F 68 18 156/89 H 97 Laboratory Results Laboratory Results WBC 5.57 K/uL (4.8-10.8) 06/30/21 19:10 RBC 4.54 M/uL (4.7-6.1) L 06/30/21 19:10 Hgb 14.4 g/dL (14.0-18.0) 06/30/21 19:10 Hct 43.2 % (42-52) 06/30/21 19:10 MCV 95.2 fL (80-100) 06/30/21 19:10 MCH 31.7 pg (25-34) 06/30/21 19:10 MCHC 33.3 g/dL (32-36) 06/30/21 19:10 RDW Std Deviation 45.7 fL (36.4-46.3) 06/30/21 19:10 RDW Coeff of Roly 13.2 % (11.5-14.5) 06/30/21 19:10 Plt Count 174 K/uL (130-400) 06/30/21 19:10 MPV 11.8 fL (7.4-10.4) H 06/30/21 19:10 Immature Gran % (Auto) 0.2 % 06/30/21 19:10 Neut % (Auto) 63.8 % 06/30/21 19:10 Lymph % (Auto) 19.9 % 06/30/21 19:10 [place] % (Auto) 14.5 % 06/30/21 19:10 Eos % (Auto) 1.4 % 06/30/21 19:10 Baso % (Auto) 0.2 % 06/30/21 19:10 Neut # (Auto) 3.55 K/uL (1.4-6.5) 06/30/21 19:10 Lymph # (Auto) 1.11 K/uL (1.2-3.4) L 06/30/21 19:10 [place] # (Auto) 0.81 K/uL (0.11-0.59) H 06/30/21 19:10 Eos # (Auto) 0.08 K/uL (0-0.5) 06/30/21 19:10 Baso # (Auto) 0.01 K/uL (0-0.2) 06/30/21 19:10 Immature Gran # (Auto) 0.01 K/uL (0.00-0.02) 06/30/21 19:10 PT 10.4 Seconds (9.0-12.0) 06/30/21 19:10 INR 1.0 (0.9-1.1) 06/30/21 19:10 APTT 28.8 Seconds (21.0-31.0) 06/30/21 19:10 PTT Ratio 1.1 06/30/21 19:10 Sodium 137 mmol/L (136-145) 06/30/21 19:10 Potassium 4.2 mmol/L (3.5-5.1) 06/30/21 19:10 Chloride 104 mmol/L (98-107) 06/30/21 19:10 Carbon Dioxide 28 mmol/L (21-32) 06/30/21 19:10 Anion Gap 5.0 (3-11) 06/30/21 19:10 BUN 26 mg/dl (7-18) H 06/30/21 19:10 Creatinine 1.66 mg/dl (0.6-1.4) H 06/30/21 19:10 Est Cr Clr Drug Dosing 45.1 ml/min 06/30/21 19:10 Est GFR ( Amer) 46.0 ml/min 06/30/21 19:10 Est GFR (Non-Af Amer) 39.7 ml/min 06/30/21 19:10 BUN/Creatinine Ratio 15.8 (10-20) 06/30/21 19:10 Glucose 201 mg/dl (70-99) H 06/30/21 19:10 POC Glucose 258 mg/dl (70-99) H 07/01/21 02:19 Calcium 8.7 mg/dl (8.5-10.1) 06/30/21 19:10 Total Bilirubin 0.5 mg/dl (0.2-1) 06/30/21 19:10 AST 13 U/L (15-37) L 06/30/21 19:10 ALT 19 U/L (12-78) 06/30/21 19:10 Alkaline Phosphatase 79 U/L (45-117) 06/30/21 19:10 Troponin I < 0.015 ng/ml (0-0.045) 06/30/21 19:10 Total Protein 7.1 gm/dl (6.4-8.2) 06/30/21 19:10 Albumin 3.0 gm/dl (3.4-5.0) L 06/30/21 19:10 Globulin 4.1 gm/dl (2.5-4.0) H 06/30/21 19:10 Albumin/Globulin Ratio 0.7 (0.9-2) L 06/30/21 19:10 Lipase 80 U/L (73-393) 06/30/21 19:10 COVID-19 Eval Order Covid19 at [facility] 06/30/21 19:48 SARS-CoV-2 (PCR) POSITIVE (Negative) A* 06/30/21 19:48 Impressions Chest X-Ray 06/30/21 19:43 XR chest 1V portable CLINICAL HISTORY: Syncope. COMPARISON STUDY: Chest radiograph December 22, 2020. FINDINGS: No pneumothorax or pleural effusion is present. Cardiomegaly is noted. There may be pulmonary vascular congestion. No lobar consolidation. IMPRESSION: Cardiomegaly with pulmonary vascular congestion. ACT 112: Negative or not required by law. Electronically signed by: Ventura Slade M.D. 06/30/2021 8:21 PM Code Status & VTE Plan Code Status Full code VTE Prophylaxis Plan VTE Prophylaxis will be ordered: Yes PG Care Time/CCT Total # of Minutes Spent Total Time Spent with Patient: Total time spent is greater than 50% in coordination of care (as documented) at patient's floor/unit and/or counseling patient: Coding Level of Care Code 84727 Initial Inpt Care Lvl 3 Diagnoses Diabetes mellitus E11.9 Hypertension I10 Chronic kidney disease, stage III (moderate) N18.3 Peripheral neuropathy G62.9 Pneumonia due to COVID-19 virus U07.1; J12.82 Hypoxia R09.02 Acute kidney injury superimposed on chronic kidney disease N17.9; N18.9
[2021-07-01] MEDS ORDERED: ONDANSETRON INJ 2 MG/ML 2 ML VIAL IV PRN (00:55)
[2021-07-01] MEDS ORDERED: CARBOHYDRATES FOR HYPOGLYCEMIA PO PRN (00:55)
[2021-07-01] MEDS ORDERED: NON-FORMULARY MEDICATION (Cholecalciferol (Vitamin D3) 50 mcg (2,000 unit) capsule) PO SCH (00:55)
[2021-07-01] MEDS ORDERED: GLUCAGON FOR INJ 1 MG VIAL SQ PRN (00:55)
[2021-07-01] MEDS ORDERED: DEXTROSE 50% 50 ML SYRINGE IV PRN (00:55)
[2021-07-01] MEDS ORDERED: GLUCOSE 10 TABS/TUBE PO PRN (00:55)
[2021-07-01] MEDS ORDERED: GLUCOSE 40% GEL 15 GM TUBE PO PRN (00:55)
[2021-07-01] MEDS ORDERED: SODIUM CHLORIDE 0.9% 1000ML 1,000 ML IV SCH (00:55)
[2021-07-01] MEDS ORDERED: ACETAMINOPHEN 325 MG TAB PO PRN (02:41)
[2021-07-01] MEDS: SODIUM CHLORIDE 0.9% 10ML FLUSH IV SCH ×3 (02:48→22:55)
[2021-07-01] MEDS ORDERED: hydrALAZINE HCL 20 MG/ML VIAL IV PRN (03:04)
[2021-07-01] MEDS: INSULIN ASPART 100 UNITS/ML 3 ML PEN SC SCH ×5 (04:05→20:33)
[2021-07-01] MEDS: ENOXAPARIN INJ 40 MG/0.4 ML SYR SQ SCH ×2 (04:05→18:07)
[2021-07-01] MEDS: AZITHROMYCIN 500 MG in DEXTROSE 5% 250 ML IV SCH (04:05)
[2021-07-01] MEDS: ALBUT/IPRATROP 3MG/0.5MG NEB 3 ML VIAL NEB SCH ×2 (05:40→11:25)
[2021-07-01 07:43] LABS: Estimated Average Glucose 189 mg/dl; Hemoglobin A1C 8.2 % (4.5-5.6)
[2021-07-01 07:50] LABS: Hematocrit (blood only) 42.7 % (42-52); Hemoglobin 14.5 g/dL (14.0-18.0); Immature Granulocytes # (auto) 0.01 K/uL (0.00-0.02); Immature Granulocytes % (auto) 0.2 %; Lymphocytes # (auto) 0.45 K/uL (1.2-3.4); Lymphocytes % (auto) 8.6 %; Mean Corpuscular Hemoglobin 31.8 pg (25-34); Mean Corpuscular Volume 93.6 fL (80-100); Mean Platelet Volume 11.2 fL (7.4-10.4); Monocytes # (auto) 0.25 K/uL (0.11-0.59); Monocytes % (auto) 4.8 %; Neutrophils % (auto) 86.4 %; Platelet Count 146 K/uL (130-400); RDW Standard Deviation 44.6 fL (36.4-46.3); Red Blood Count 4.56 M/uL (4.7-6.1); White Blood Count 5.21 K/uL (4.8-10.8)
[2021-07-01 08:13] LABS: Albumin Level 2.8 gm/dl (3.4-5.0); BUN Creatinine Ratio 17.4 (10-20); Creatinine Clr Calc Pharmacy 57.1 ml/min; Est GFR (African American) 60.2 ml/min; Est GFR (Non-African American) 51.9 ml/min; Potassium 4.5 mmol/L (3.5-5.1)
[2021-07-01 08:16] LABS: Albumin Globulin Ratio 0.7 (0.9-2); Bilirubin,Total 0.4 mg/dl (0.2-1); Globulin 3.8 gm/dl (2.5-4.0); Total Protein 6.6 gm/dl (6.4-8.2)
--- NOTE | 2021-07-01 08:53 | CT Scan Report ---
CHEST CTA for PULMONARY ARTERIES CT DOSE: 562.61 mGycm HISTORY: Syncope, +Covid TECHNIQUE: Multiaxial CT images of the chest were performed following the intravenous administration of contrast to evaluate the pulmonary arteries. Maximal intensity projection images were also obtaine d. A dose lowering technique was utilized adhering to the principles of ALARA. COMPARISON STUDY: None. FINDINGS: Limited views of the upper abdomen demonstrate a normal liver and spleen. Prior cholecystec stephanie. There is a small hiatus hernia. No pleural or pericardial effusions. The heart is mildly enlarg ed. Normal esophagus. No mediastinal lymphadenopathy. No fractures within the visualized osseous stru ctures. No pneumothorax. The central airways are patent. There is respiratory motion artifact resulti ng in suboptimal evaluation. Mild interlobular septal thickening at the lung bases. There are faint p atchy groundglass airspace opacities within the right middle lobe. Bibasilar linear densities consist ent with subsegmental atelectasis. There are few borderline enlarged right hilar and right bronchial lymph nodes. These may be reactive. Normal caliber thoracic aorta with no evidence for dissection. No filling defects within the pulmonary arteries to suggest a pulmonary embolus. IMPRESSION: 1. No evidence for pulmonary embolus. 2. Patchy groundglass airspace opacities within the right middle lobe consistent with an atypical inf ectious process such as a viral pneumonia. 3. A few prominent right hilar and bronchial lymph nodes which may be reactive. ACT 112: Negative or not required by law. Electronically signed by: Raul Ann M.D. 07/01/2021 8:52 AM
[2021-07-01] MEDS ORDERED: NON-FORMULARY MEDICATION (Coenzyme Q10 [Coq-10] 100 mg Capsule) PO SCH (09:00)
[2021-07-01] MEDS ORDERED: CHOLECALCIFEROL 1,000 UNITS 25 MCG TAB PO SCH (09:00)
[2021-07-01] MEDS: FUROSEMIDE 20 MG TAB PO SCH (09:25)
[2021-07-01] MEDS: ASPIRIN 81 MG ECTAB PO SCH (09:25)
[2021-07-01] MEDS: GABAPENTIN 600 MG TAB PO SCH ×3 (09:25→20:23)
[2021-07-01] MEDS: TOLTERODINE TARTRATE LA 4 MG CAPCR PO SCH (09:26)
[2021-07-01] MEDS: ZINC SULFATE 220 MG CAPSULE PO SCH (09:26)
[2021-07-01] MEDS: guaiFENesin 600 MG TABCR PO SCH ×2 (09:26→20:23)
[2021-07-01] MEDS: dexAMETHasone 6 MG in SYRINGE 0 ML IV SCH (09:48)
--- NOTE | 2021-07-01 10:55 | Hospitalist Progress Note ---
Date of Service July 01, 2021 Assessment & Plan (1) Pneumonia due to COVID-19 virus: Plan: vaccinated with Moderna in October 2020 Pneumonia due to COVID-19 virus with hypoxia- CT chest only shows ground glass opacities in right middle lobe, mild case Dexamethasone 6 mg IV every morning, day 2 Remdesivir IV per protocol, will continue since he is early in infection, < 7 days Azithromycin 500 mg IV daily, day 2 Duonebs PRN only Nasal cannula oxygen, titrate to keep pulse ox around 94% - titrated to room air now Guaifenesin extended release 1200 mg p.o. twice daily Vitamin D 5000 international units p.o. daily Zinc sulfate turn 20 mg p.o. daily (2) Hypoxia: Plan: See above down to room air today, prone position throughout the day (3) Diabetes mellitus: Plan: Glucose 201 upon admission Continue Lantus 16 units subcu at bedtime Place on Accu-Cheks before meals and at bedtime with NovoLog coverage per scale (4) Acute kidney injury superimposed on chronic kidney disease: Plan: RAMIN on CKD stage III- Creatinine 1.66 upon admission, down to 1.33 drinking better, no further IV fluids Received NSS 1500 mL in the ED Repeat laboratories in a.m. (5) Hypertension: Plan: Hold losartan Hydralazine 10 mg IV every 4 hours as needed systolic blood pressure greater than 160 (6) Chronic kidney disease, stage III (moderate): Plan: See above (7) Peripheral neuropathy: Plan: Continue gabapentin Plan: move to 3rd floor [facility] labs and CXR in morning, if still on room air will discharge to home Admission and Anticipated Discharge Date Admission Date: June 30, 2021 Subjective patient doing well this morning, feels better, titrated down to room air, laying prone he is ambulating in room independently, feeling fine on his feet he got IV fluids in the ED and on admission he says he is not short of breath and did not feel short of breath at home he said his main issue was sinus congestion and drainage and cough, not much sputum coming up reviewed chart, CT chest only showed ground glass opacities in right middle lobe patient says he got Moderna shots in September and October last year, he was going to get a booster whenever Moderna was available will move him to 3rd floor [facility], get repeat labs and CXR tomorrow, consider discharge if he is still on room air Review of Systems Review of Systems: All systems reviewed & are unremarkable except as noted in Subjective Physical Exam Physical Exam: General: well developed, well nourished, no acute distress, comfortable Neck: supple, trachea midline, normal thyroid Lungs: clear to auscultation bilaterally, normal respiratory effort, no accessory muscle use, no distress Heart: regular S1 and S2, no murmur, peripheral pulses normal, capillary refill normal, no edema Abdomen: soft, NT, ND, + BS, no hepatomegaly, normal to percussion Extremities: normal in appearance, no cyanosis, no petechiae, strength is 5/5 bilaterally Neuro: awake, cooperative, moves all extremities, no focal motor deficits, CN II-XII intact, sensation in extremities intact, normal speech Skin: warm, dry, no rash, normal turgor Psych: Awake, alert oriented x 3, euthymic affect Results & Data Results & Data ([facility]) Vital Signs (Past 12 Hours) Vital Signs Temp Pulse Pulse Pulse Resp BP Pulse Ox 07/01/21 07:41 37.2 C 76 18 148/88 H 95 07/01/21 05:59 64 07/01/21 05:42 68 16 97 07/01/21 05:27 37.1 C 65 16 149/86 H 96 07/01/21 02:52 36.6 C 84 20 165/95 H 93 07/01/21 01:50 36.6 C 84 20 165/95 H 93 07/01/21 01:33 72 18 172/113 H 94 Laboratory Results Laboratory Results - last 24 hr 06/30/21 06/30/21 06/30/21 19:10 19:10 19:10 WBC 5.57 RBC 4.54 L Hgb 14.4 Hct 43.2 MCV 95.2 MCH 31.7 MCHC 33.3 RDW Std Deviation 45.7 RDW Coeff of Roly 13.2 Plt Count 174 MPV 11.8 H Immature Gran % (Auto) 0.2 Neut % (Auto) 63.8 Lymph % (Auto) 19.9 [place] % (Auto) 14.5 Eos % (Auto) 1.4 Baso % (Auto) 0.2 Neut # (Auto) 3.55 Lymph # (Auto) 1.11 L [place] # (Auto) 0.81 H Eos # (Auto) 0.08 Baso # (Auto) 0.01 Immature Gran # (Auto) 0.01 PT 10.4 INR 1.0 APTT 28.8 PTT Ratio 1.1 Sodium 137 Potassium 4.2 Chloride 104 Carbon Dioxide 28 Anion Gap 5.0 BUN 26 H Creatinine 1.66 H Est Cr Clr Drug Dosing 45.1 Est GFR ( Amer) 46.0 Est GFR (Non-Af Amer) 39.7 BUN/Creatinine Ratio 15.8 Glucose 201 H POC Glucose Estimat Average Glucose Hemoglobin A1c Calcium 8.7 Magnesium Total Bilirubin 0.5 AST 13 L ALT 19 Alkaline Phosphatase 79 Troponin I < 0.015 Total Protein 7.1 Albumin 3.0 L Globulin 4.1 H Albumin/Globulin Ratio 0.7 L Lipase 80 COVID-19 Eval Order SARS-CoV-2 (PCR) 06/30/21 06/30/21 07/01/21 19:48 19:48 02:19 WBC RBC Hgb Hct MCV MCH MCHC RDW Std Deviation RDW Coeff of Roly Plt Count MPV Immature Gran % (Auto) Neut % (Auto) Lymph % (Auto) [place] % (Auto) Eos % (Auto) Baso % (Auto) Neut # (Auto) Lymph # (Auto) [place] # (Auto) Eos # (Auto) Baso # (Auto) Immature Gran # (Auto) PT INR APTT PTT Ratio Sodium Potassium Chloride Carbon Dioxide Anion Gap BUN Creatinine Est Cr Clr Drug Dosing Est GFR ( Amer) Est GFR (Non-Af Amer) BUN/Creatinine Ratio Glucose POC Glucose 258 H Estimat Average Glucose Hemoglobin A1c Calcium Magnesium Total Bilirubin AST ALT Alkaline Phosphatase Troponin I Total Protein Albumin Globulin Albumin/Globulin Ratio Lipase COVID-19 Eval Order Covid19 at [facility] SARS-CoV-2 (PCR) POSITIVE A* 07/01/21 07/01/21 07/01/21 06:56 06:56 06:56 WBC 5.21 RBC 4.56 L Hgb 14.5 Hct 42.7 MCV 93.6 MCH 31.8 MCHC 34.0 RDW Std Deviation 44.6 RDW Coeff of Roly 13.0 Plt Count 146 MPV 11.2 H Immature Gran % (Auto) 0.2 Neut % (Auto) 86.4 Lymph % (Auto) 8.6 [place] % (Auto) 4.8 Eos % (Auto) 0.0 Baso % (Auto) 0.0 Neut # (Auto) 4.50 Lymph # (Auto) 0.45 L [place] # (Auto) 0.25 Eos # (Auto) 0.00 Baso # (Auto) 0.00 Immature Gran # (Auto) 0.01 PT INR APTT PTT Ratio Sodium 135 L Potassium 4.5 Chloride 105 Carbon Dioxide 25 Anion Gap 6.0 BUN 23 H Creatinine 1.33 D Est Cr Clr Drug Dosing 57.1 Est GFR ( Amer) 60.2 Est GFR (Non-Af Amer) 51.9 BUN/Creatinine Ratio 17.4 Glucose 300 H POC Glucose Estimat Average Glucose 189 Hemoglobin A1c 8.2 H Calcium 8.0 L Magnesium 2.0 Total Bilirubin 0.4 AST 10 L ALT 18 Alkaline Phosphatase 80 Troponin I Total Protein 6.6 Albumin 2.8 L Globulin 3.8 Albumin/Globulin Ratio 0.7 L Lipase COVID-19 Eval Order SARS-CoV-2 (PCR) 07/01/21 07:26 WBC RBC Hgb Hct MCV MCH MCHC RDW Std Deviation RDW Coeff of Roly Plt Count MPV Immature Gran % (Auto) Neut % (Auto) Lymph % (Auto) [place] % (Auto) Eos % (Auto) Baso % (Auto) Neut # (Auto) Lymph # (Auto) [place] # (Auto) Eos # (Auto) Baso # (Auto) Immature Gran # (Auto) PT INR APTT PTT Ratio Sodium Potassium Chloride Carbon Dioxide Anion Gap BUN Creatinine Est Cr Clr Drug Dosing Est GFR ( Amer) Est GFR (Non-Af Amer) BUN/Creatinine Ratio Glucose POC Glucose 275 H Estimat Average Glucose Hemoglobin A1c Calcium Magnesium Total Bilirubin AST ALT Alkaline Phosphatase Troponin I Total Protein Albumin Globulin Albumin/Globulin Ratio Lipase COVID-19 Eval Order SARS-CoV-2 (PCR) Medications Administered Current Inpatient Medications Acetaminophen (Acetaminophen 325 Mg Tab) 650 mg PO Q6H PRN PRN Reason: Pain or Fever Stop: 07/31/21 02:40 Albuterol (Albut/Ipratrop 3mg/0.5mg Neb 3 Ml Vial) 3 ml NEB QIDR BRENDAN Stop: 07/31/21 06:59 Last Admin: 07/01/21 05:40 Dose: 3 ml Documented by: Aspirin (Aspirin 81 Mg Ectab) 81 mg PO DAILY BRENDAN Stop: 07/31/21 08:59 Last Admin: 07/01/21 09:25 Dose: 81 mg Documented by: Dextrose (Dextrose 50% 50 Ml Syringe) 25 - 50 ml IV UD PRN; Protocol PRN Reason: Hypoglycemia Protocol Stop: 07/31/21 00:54 Enoxaparin Sodium (Enoxaparin Inj 40 Mg/0.4 Ml Syr) 40 mg SQ Q12H BRENDAN Stop: 07/31/21 05:59 Last Admin: 07/01/21 04:05 Dose: 40 mg Documented by: Furosemide (Furosemide 20 Mg Tab) 20 mg PO DAILY BRENDAN Stop: 07/31/21 08:59 Last Admin: 07/01/21 09:25 Dose: 20 mg Documented by: Gabapentin (Gabapentin 600 Mg Tab) 600 mg PO TID BRENDAN Stop: 07/31/21 08:59 Last Admin: 07/01/21 09:25 Dose: 600 mg Documented by: Glucagon (Glucagon For Inj 1 Mg Vial) 1 mg SQ UD PRN; Protocol PRN Reason: Hypoglycemia Protocol Stop: 07/31/21 00:54 Glucose (Glucose 10 Tabs/Tube) 4 - 8 tabs PO UD PRN; Protocol PRN Reason: Hypoglycemia Protocol Stop: 07/31/21 00:54 Glucose (Glucose 40% Gel 15 Gm Tube) 15 - 30 gm PO UD PRN; Protocol PRN Reason: Hypoglycemia Protocol Stop: 07/31/21 00:54 Guaifenesin (Guaifenesin 600 Mg Tabcr) 1,200 mg PO Q12 BRENDAN Stop: 07/31/21 08:59 Last Admin: 07/01/21 09:26 Dose: 1,200 mg Documented by: Hydralazine HCl (Hydralazine Hcl 20 Mg/Ml Vial) 10 mg IV Q4H PRN PRN Reason: Blood Pressure - High Stop: 07/31/21 03:03 Dexamethasone 6 mg/ Syringe 1.5 mls @ 1 mls/min IV Q24H BERNDAN Stop: 07/31/21 08:59 Last Admin: 07/01/21 09:48 Dose: 1 mls/min Documented by: Remdesivir 100 mg/ Sodium (Chloride) 250 mls @ 250 mls/hr IV Q24H BRENDAN; Protocol Stop: 07/04/21 20:59 Azithromycin 500 mg/ Dextrose 255 mls @ 125 mls/hr IV Q24H BRENDAN Stop: 07/08/21 03:59 Last Infusion: 07/01/21 06:13 Dose: Infused Documented by: Insulin Aspart (Insulin Aspart 100 Units/Ml 3 Ml Pen) 0 units SC ACHS BRENDAN Stop: 07/31/21 07:29 Last Admin: 07/01/21 09:22 Dose: 9 units Documented by: Insulin Glargine (Insulin Glargine Solostar 100 Units/Ml 3 Ml Pen) 16 units SQ HS [facility] Stop: 07/31/21 20:59 Miscellaneous (Carbohydrates For Hypoglycemia ) 15 - 30 gm PO UD PRN PRN Reason: Hypoglycemia Protocol Stop: 07/31/21 00:54 Ondansetron HCl (Ondansetron Inj 2 Mg/Ml 2 Ml Vial) 4 mg IV Q6H PRN PRN Reason: Nausea Stop: 07/31/21 00:54 Sodium Chloride (Sodium Chloride 0.9% 10ml Flush) 30 ml IV Q24H [facility] Stop: 07/05/21 00:56 Last Admin: 07/01/21 02:48 Dose: 30 ml Documented by: Tolterodine Tartrate (Tolterodine Tartrate La 4 Mg Capcr) 4 mg PO DAILY BRENDAN Stop: 07/31/21 08:59 Last Admin: 07/01/21 09:26 Dose: 4 mg Documented by: Vitamin D (Cholecalciferol 1,000 Units 25 Mcg Tab) 5,000 units PO QAM [facility] Stop: 07/31/21 08:59 Last Admin: 07/01/21 09:25 Dose: 5,000 units Documented by: Zinc Sulfate (Zinc Sulfate 220 Mg Capsule) 220 mg PO QAM [facility] Stop: 07/31/21 08:59 Last Admin: 07/01/21 09:26 Dose: 220 mg Documented by: PG Care Time/CCT Total # of Minutes Spent Total Time Spent with Patient: Total time spent is greater than 50% in coordination of care (as documented) at patient's floor/unit and/or counseling patient: Coding Level of Care Code 09689 Subseq Hosp Care Lvl 2 Diagnoses Pneumonia due to COVID-19 virus U07.1; J12.82 Hypoxia R09.02 Diabetes mellitus E11.9 Acute kidney injury superimposed on chronic kidney disease N17.9; N18.9 Hypertension I10 Chronic kidney disease, stage III (moderate) N18.3 Peripheral neuropathy G62.9
[2021-07-01] MEDS ORDERED: ALBUT/IPRATROP 3MG/0.5MG NEB 3 ML VIAL NEB PRN (11:34)
--- NOTE | 2021-07-01 13:46 | Electrocardiogram Report ---
Test Reason : Blood Pressure : / mmHG Vent. Rate : 068 BPM Atrial Rate : 068 BPM P-R Int : 186 ms QRS Dur : 084 ms QT Int : 386 ms P-R-T Axes : 029 003 013 degrees QTc Int : 410 ms Normal sinus rhythm Possible Inferior infarct , age undetermined Abnormal ECG No previous ECGs available Confirmed by Pilo Brooks ([id number]) on 07/01/2021 1:45:51 PM Referred By: REFERRED SELF Confirmed By:Pilo Brooks
[2021-07-01] MEDS ORDERED: REMDESIVIR 100 MG in SODIUM CHLORIDE 0.9% 230 ML IV SCH (20:00)
[2021-07-01] MEDS ORDERED: INSULIN GLARGINE SOLOSTAR 100 UNITS/ML 3 ML PEN SQ SCH ×2 (21:00)
[2021-07-01] MEDS: INSULIN GLARGINE SOLOSTAR 100 UNITS/ML 3 ML PEN SQ SCH (21:10)
[2021-07-02] MEDS: INSULIN ASPART 100 UNITS/ML 3 ML PEN SC SCH ×3 (00:25→13:22)
[2021-07-02] MEDS: AZITHROMYCIN 500 MG in DEXTROSE 5% 250 ML IV SCH (04:01)
[2021-07-02] MEDS: ENOXAPARIN INJ 40 MG/0.4 ML SYR SQ SCH (06:31)
--- NOTE | 2021-07-02 07:36 | XRay Report ---
XR chest 1V portable CLINICAL HISTORY: follow up COVID pneumonia COMPARISON STUDY: Chest radiograph and chest CT June 30, 2021. FINDINGS: Lung volumes are normal. There is no pneumothorax or pleural effusion. No consolidation is identified. Mild right middle lobe airspace opacity shown on chest CT is not visualized by radiograph y. IMPRESSION: No acute cardiopulmonary findings. Cardiomegaly. No consolidation identified. ACT 112: Negative or not required by law. Electronically signed by: Ventura Slade M.D. 07/02/2021 7:35 AM
[2021-07-02 07:56] LABS: Basophils # (auto) 0.01 K/uL (0-0.2); Basophils % (auto) 0.1 %; Eosinophils # (auto) 0.01 K/uL (0-0.5); Eosinophils % (auto) 0.1 %; Hematocrit (blood only) 39.1 % (42-52); Hemoglobin 13.5 g/dL (14.0-18.0); Immature Granulocytes # (auto) 0.02 K/uL (0.00-0.02); Immature Granulocytes % (auto) 0.3 %; Lymphocytes % (auto) 17.7 %; Mean Corpuscular Hemoglobin 31.8 pg (25-34); Mean Corpuscular Hgb Conc 34.5 g/dL (32-36); Mean Platelet Volume 11.1 fL (7.4-10.4); Monocytes # (auto) 0.68 K/uL (0.11-0.59); Neutrophils # (auto) 4.85 K/uL (1.4-6.5); Neutrophils % (auto) 71.8 %; Platelet Count 164 K/uL (130-400); RDW Coefficient of Variation 12.9 % (11.5-14.5); RDW Standard Deviation 43.5 fL (36.4-46.3); Red Blood Count 4.25 M/uL (4.7-6.1); White Blood Count 6.77 K/uL (4.8-10.8)
[2021-07-02 08:21] LABS: Albumin Level 2.7 gm/dl (3.4-5.0); BUN Creatinine Ratio 23.7 (10-20); Creatinine Clr Calc Pharmacy 52.1 ml/min; Est GFR (African American) 55.1 ml/min; Est GFR (Non-African American) 47.6 ml/min; Potassium 4.1 mmol/L (3.5-5.1)
[2021-07-02 08:24] LABS: Albumin Globulin Ratio 0.7 (0.9-2); Bilirubin,Total 0.5 mg/dl (0.2-1); Globulin 3.6 gm/dl (2.5-4.0); Total Protein 6.3 gm/dl (6.4-8.2)
[2021-07-02] MEDS: dexAMETHasone 6 MG in SYRINGE 0 ML IV SCH (09:29)
[2021-07-02] MEDS: FUROSEMIDE 20 MG TAB PO SCH (09:29)
[2021-07-02] MEDS: ASPIRIN 81 MG ECTAB PO SCH (09:29)
[2021-07-02] MEDS: ZINC SULFATE 220 MG CAPSULE PO SCH (09:29)
[2021-07-02] MEDS: GABAPENTIN 600 MG TAB PO SCH ×2 (09:29→13:22)
[2021-07-02] MEDS: TOLTERODINE TARTRATE LA 4 MG CAPCR PO SCH (09:30)
[2021-07-02] MEDS: guaiFENesin 600 MG TABCR PO SCH (09:30)
[2021-07-02] MEDS: INSULIN GLARGINE SOLOSTAR 100 UNITS/ML 3 ML PEN SQ SCH (09:30)
--- NOTE | 2021-07-05 10:13 | Discharge Summary ---
Date of Service July 02, 2021 Admission HPI Per Admitting Provider The patient is a 76-year-old male with a past medical history including hypercholesterolemia, BPH with LUTS, internal hemorrhoids, diabetes mellitus, diverticulosis, GERD, vitamin D deficiency, hypertension and CKD stage III. Patient reports symptoms as noted above, in addition, he reports an episode where he became very fatigued, lost his balance, but did not lose consciousness. He denies any injuries associated with this fall Principal Diagnosis COVID 19 infection, mild pneumonia Discharge Exam General: well developed, well nourished, no acute distress, comfortable Neck: supple, trachea midline, normal thyroid Lungs: clear to auscultation bilaterally, normal respiratory effort, no accessory muscle use, no distress Heart: regular S1 and S2, no murmur, peripheral pulses normal, capillary refill normal, no edema Abdomen: soft, NT, ND, + BS, no hepatomegaly, normal to percussion Extremities: normal in appearance, no cyanosis, no petechiae, strength is 5/5 bilaterally Neuro: awake, cooperative, moves all extremities, no focal motor deficits, CN II-XII intact, sensation in extremities intact, normal speech Skin: warm, dry, no rash, normal turgor Psych: Awake, alert oriented x 3, euthymic affect Discharge Data Allergies Allergy/AdvReac Type Severity Reaction Status Date / Time No Known Allergies Allergy NONE Verified 06/30/21 20:38 Consultations 06/30/21 21:45 ED Decision to Admit Stat Ordered Studies 06/30/21 21:44 CT angio chest PE protocol Urgent Hospital Course (1) Pneumonia due to COVID-19 virus: vaccinated with Moderna in October 2020 Pneumonia due to COVID-19 virus with hypoxia- CT chest only shows ground glass opacities in right middle lobe, mild case Dexamethasone 6 mg IV every morning, day 3 Remdesivir IV per protocol, will continue since he is early in infection, < 7 days Azithromycin 500 mg IV daily, day 3 quickly titrated to room air on day 2 of stay, stayed on room air for 24 hours with no issues cough is resolving, does not feel short of breath no need to continue dexamethasone on discharge, he knows to monitor for shortness of breath, hypoxia stay well nourished, well hydrated (hold Lasix and Losartan for a few days) can take immune support supplements and Mucinex follow up with PCP stay isolated for 14 days from onset of symptoms, his is at home but also positive, she is also vaccinated (2) Hypoxia: resolved quickly, at worst required 2L NC, no dyspnea CXR is clear today 96% on room air instructed to monitor for dyspnea or hypoxia at home (3) Diabetes mellitus: Glucose 201 upon admission Continue Lantus 16 units subcu at bedtime Place on Accu-Cheks before meals and at bedtime with NovoLog coverage per scale (4) Acute kidney injury superimposed on chronic kidney disease: RAMIN on CKD stage III- Creatinine 1.66 upon admission, down to 1.3 drinking better, no further IV fluids Received NSS 1500 mL in the ED recommend holding Lasix and Losartan a few days as he recovers from illness, less stress on kidneys (5) Hypertension: Hold losartan a few days BP stable, slightly high recommend low sodium diet (6) Chronic kidney disease, stage III (moderate): Cr back to 1.3, making urine (7) Peripheral neuropathy: Continue gabapentin Total Time Total Time Spent Total Time Spent (In Minutes): 34 minutes Discharge Plan Discharge Items Patient Disposition: Home - Self-Care Reason For Visit: COVID-19 PNEUMONIA WITH HYPOXIA Discharge Diagnosis: COVID 19 infection, mild pneumonia, hypoxia resolved Condition on Discharge: Good Goals: stay well rested, well nourished, well hydrated Activity: Resume your previous activity Driving/Machine Use: No limitations Weightbearing: Full weightbearing Non-emergency contact: Primary Care Provider Call non-emergency contact if: you have any medication questions, your symptoms worsen and you have a fever Follow-up/Referrals: Laz Nunez [Primary Care Provider] - (one week) Diet: Carb Consistent or DM2 Addtl Attending Provider Instructions: Medications: no role for dexamethasone or Remdesivir as you are 96% on room air COVID 19: stay well hydrated, well nourished, get plenty of rest, sleep on your stomach monitor oxygen levels at home, as long as oxygen is > 88% on room air you do not need to be in the hospital you can take Zinc 220mg daily, Vitamin D 2000 daily, Mucinex 600mg twice a day you should stay isolated for 14 days from onset of symptoms, wear a mask if you leave house Hold losartan and Lasix for next 4-5 days as you recover from illness, okay to resume on 07/06 follow up with PCP if oxygen levels drop below 88% on finger monitor then return to the ED but you have been stable off oxygen for over 24 hours and chest x-ray is clear Pending Studies at Discharge: No Stand-Alone Forms: My [facility], Smoking Cessation Medications and DC Order Prescriptions: Continued fesoterodine 4 mg tablet extended release 24 hr 4 mg PO BID Qty: 60 RF: 5 cholecalciferol (vitamin D3) 50 mcg (2,000 unit) capsule 1,000 units PO BID RF: 0 insulin lispro [Humalog U-100 Insulin] 100 unit/mL solution 1 sliding scale dose SQ TIDM RF: 0 Lantus U-100 Insulin 100 unit/mL Solution 16 unit SUBCUT HS RF: 0 aspirin 81 mg Tablet,Delayed Release (Dr/Ec) 81 mg PO DAILY RF: 0 fluticasone propionate [Flonase Allergy Relief] 50 mcg/actuation Spr ay,Suspension 1 spray INTRANASAL DAILY PRN (Reason: Congestion) RF: 0 coenzyme Q10 [CoQ-10] 100 mg Capsule 100 mg PO QAM RF: 0 acetaminophen 500 mg Capsule 1,000 mg PO Q6H PRN (Reason: Pain) RF: 0 gabapentin 600 mg tablet 600 mg PO TID RF: 0 diclofenac sodium 1 % gel 1 ea TOPICAL UD RF: 0 Discontinued losartan 100 mg Tablet 50 mg PO QAM RF: 0 furosemide 20 mg tablet 20 mg PO DAILY RF: 0 Discharge Orders: Discharge Order (Routine); Ordered 07/02/21 Ordered By: Ever Alexander/Other Patient Handouts: A1C, Managing Type 2 Diabetes Admission Data Admit Date/Time: 06/30/21 22:10 Attending Provider: Ever Rahman Admit Provider: Chris Pace Primary Care Provider: Laz Nunez Other Providers: Chris Pace Other Interventions: Discharge Summary Assessment (RN) Last Done: 07/02/21 11:51 Coding Level of Care Code D/C DAY MANAGEMENT >30 MINS Diagnoses Pneumonia due to COVID-19 virus U07.1; J12.82 Hypoxia R09.02 Diabetes mellitus E11.9 Acute kidney injury superimposed on chronic kidney disease N17.9; N18.9 Hypertension I10 Chronic kidney disease, stage III (moderate) N18.3 Peripheral neuropathy G62.9
== END 2021-07-02 13:57 | disposition home or self-care (01) ==
LOC: ED 18:56 → SUATTDRO 22:10 → INTOOBSV 22:10 → 2E 22:10 → 3W 07-01 10:46